=== PATIENT | female | born 1960 | race Caucasian/White ===

== ENCOUNTER 2024-09-10 08:44 | Day surgery (SDC) | payer MEDICARE, MEDICAID ==
[2024-09-09 11:42] LABS: BASOPHILS # (AUTO) 0.1 X10'3 (0-0.2); BASOPHILS % (AUTO) 0.6 % (0-1); EOSINOPHILS # (AUTO) 0.1 X10'3 (0-0.9); EOSINOPHILS % (AUTO) 0.6 % (0-6); HEMATOCRIT 35.6 % (35.0-45.0); HEMOGLOBIN 11.7 g/dl (12.0-16.0); LYMPHOCYTES # (AUTO) 1.7 X10'3 (1.1-4.8); LYMPHOCYTES % (AUTO) 19.9 % (21-51); MEAN CORPUSCULAR HEMOGLOBIN 28.3 PG (27.0-31.0); MEAN CORPUSCULAR HGB CONC 32.7 g/dL (33.0-36.5); MEAN CORPUSCULAR VOLUME 86.7 FL (78-98); MONOCYTES # (AUTO) 0.7 X10'3 (0-0.9); MONOCYTES % (AUTO) 7.4 % (2-12); NEUTROPHILS # (AUTO) 6.3 X10'3 (1.8-7.7); NEUTROPHILS % (AUTO) 71.5 % (42-75); PLATELET COUNT 316 X10'3 (140-440); RED BLOOD COUNT 4.11 X10'6 (4.20-5.60); RED CELL DISTRIBUTION WIDTH 13.7 % (11.5-14.5); WHITE BLOOD COUNT 8.8 X10'3 (4.5-11.0)
[2024-09-09 11:56] LABS: ALBUMIN 3.3 G/DL (3.4-5.0); ANION GAP 7 (8-16); BLOOD UREA NITROGEN 11 MG/DL (7-18); BUN/CREATININE RATIO 14.3 (10.0-20.0); CALCIUM 9.1 MG/DL (8.5-10.1); CHLORIDE 100 MMOL/L (99-107); CREATININE 0.77 MG/DL (0.40-0.90); GLUCOSE 93 MG/DL (70-104); POTASSIUM 3.7 MMOL/L (3.5-5.1); SODIUM 138 MMOL/L (135-145); TOTAL CARBON DIOXIDE 31.1 MMOL/L (24-32); eGFR 75 ML/MIN
[2024-09-09 11:59] LABS: APTT 26 SECONDS (22-32); INR 1.1 INR; PROTHROMBIN TIME 11.4 SECONDS (9.0-12.0)
[2024-09-10] VITALS (15 sets, daily range): BP systolic 115–153; BP diastolic 74–106; PULSE 88–98; RESP 15–22; TEMP 98.3; O2SAT 92–100
[~2024-09-10] VITALS: Ht 167.6 cm; Wt 114.9 kg
[2024-09-10] MEDS ORDERED: BUDE10.7 PO (09:11)
[2024-09-10] MEDS ORDERED: ATOR40TA72 PO (09:11)
[2024-09-10] MEDS ORDERED: [UNRECOGNIZED DRUG - CODE] PO (09:11)
[2024-09-10] MEDS ORDERED: IPRA3AMP31 NEB (09:11)
[2024-09-10] MEDS ORDERED: FURO20TA4 PO (09:11)
[2024-09-10] MEDS ORDERED: FLUT16SP26 (09:12)
[2024-09-10] MEDS ORDERED: SUCR1TAB PO (09:14)
[2024-09-10] MEDS ORDERED: ONDA-243 PO (09:14)
[2024-09-10] MEDS ORDERED: DICY10CA88 PO (09:14)
[2024-09-10] MEDS ORDERED: SIME80TA16 PO (09:14)
[2024-09-10] MEDS ORDERED: CETI10TA14 PO (09:14)
[2024-09-10] MEDS ORDERED: PANT40TA54 PO (09:16)
[2024-09-10] MEDS ORDERED: LACT-373 PO (09:16)
[2024-09-10] MEDS ORDERED: SPIR50TA5 PO (09:16)
[2024-09-10] MEDS ORDERED: SENN-360 PO (09:16)
[2024-09-10] MEDS ORDERED: MONT-40 PO (09:16)
[2024-09-10] MEDS ORDERED: midazolam 1 mg/ML 2ml injection ONE (09:57)
[2024-09-10] MEDS ORDERED: iohexol 350 MG/ML 50ML vial IV ONE (09:57)
[2024-09-10] MEDS ORDERED: heparin 1,000unit/ml 10ml vial 10 ML ONE (09:57)
[2024-09-10] MEDS ORDERED: fentaNYL/PF 50MCG/1 ML 2ML syringe ONE (09:57)
[2024-09-10] MEDS ORDERED: verapamil 2.5 mg/ml inj IV ONE (09:57)
[2024-09-10] MEDS ORDERED: LIDOcaine 1% (10mg/ml) 2ml vial ONE (09:57)
[2024-09-10] MEDS ORDERED: iohexol 350MG/ML 100ml bottle IV ONE (09:58)
[2024-09-10] MEDS ORDERED: nitroGLYCERIN 500mcg/5mL D5W 5 ML IV ONE (09:58)
[2024-09-10] MEDS: LORazepam 0.5 MG tablet PO PRN (10:03)
[2024-09-10] MEDS: diphenhydrAMINE 25mg capsule PO PRN (10:03)
[2024-09-10] MEDS: normal saline 1,000 ML IV SCH (10:05)
[2024-09-10] MEDS: ipratropium/albuterol 3ml nebule NEB ONE (13:14)
[2024-09-10 14:04] LABS: ISTAT HGB MIX 10.9 g/dl (12.0-16.0); ISTAT Hct MIX 32 %PCV (35-45); ISTAT O2 SATURATION MIX VENOUS 59 % (60-80); ISTAT SOURCE VEN
[2024-09-11 08:56] LABS: ISTAT HGB ART 11.2 g/dl (12.0-16.0); ISTAT Hct ART 33 %PCV (35-45); ISTAT O2 SATURATION ARTERIAL 96 % (95-98); ISTAT SOURCE ART
== END 2024-09-10 17:55 | disposition home or self-care (01) ==
LOC: SSTAY O 08:44
PROVIDERS: ATTEND Internal Medicine Cardiovascular Disease
DX: I35.0 Nonrheumatic aortic (valve) stenosis (principal); Q27.39 Arteriovenous malformation, other site; I50.32 Chronic diastolic (congestive) heart failure; J44.9 Chronic obstructive pulmonary disease, unspecified; K21.9 Gastro-esophageal reflux disease without esophagitis; E66.9 Obesity, unspecified; I27.20 Pulmonary hypertension, unspecified; E78.5 Hyperlipidemia, unspecified; Z68.41 Body mass index [BMI] 40.0-44.9, adult; G47.39 Other sleep apnea; Z79.899 Other long term (current) drug therapy; Z79.01 Long term (current) use of anticoagulants; Z82.49 Family history of ischemic heart disease and other diseases of the circulatory system; Z90.49 Acquired absence of other specified parts of digestive tract; Z98.890 Other specified postprocedural states
CPT/HCPCS: 36415; 80048; 82803; 85014; 85025; 85610; 85730; 93005; 93460; 94640; 99152; A4615; A6258; A6402; C1725; C1751; C1769; C1894; J1644; J2003; J2250; J3010; J3490; J7030; Q0163; Q9967; Z7610; 76937; 94760; 99153